=== PATIENT | male | born 1965 | race Caucasian/White ===

== ENCOUNTER 2024-01-02 14:28 | Day surgery (SDC) | payer OTHER, SELFPAY ==
[2024-01-02] VITALS (11 sets, daily range): BP systolic 121–161; BP diastolic 65–138; BMI 31.9
[2024-01-02 10:52] LABS: Urine Albumin Negative (Neg - Trace); Urine Bilirubin Negative (Negative); Urine Character Clear (Clear); Urine Color Yellow; Urine Glucose Negative (Negative); Urine Ketone Negative (Negative); Urine Leukocyte Negative (Negative); Urine Nitrite Negative (Negative); Urine Occult Blood Negative (Negative); Urine Specific Gravity 1.015 (<1.030); Urine Urobilinogen Negative (Neg - 1+)
[2024-01-02 11:01] LABS: % Basophils 0.6 % (0-2); % Eosinophils 0.8 % (0-6); % Immature Granulocytes 0.2 % (0-0.5); % Lymphocytes 17.7 % (20.5-51.1); % Monocytes 8.7 % (1.7-9.3); ALT (SGPT) 38 U/L (0-50); AST (SGOT) 28 U/L (17-59); Absolute Basophils 0.1 10^3/uL (0-0.2); Absolute Eosinophils 0.1 10^3/uL (0-0.7); Absolute Lymphocytes 1.5 10^3/uL (1.2-3.4); Absolute Monocytes 0.7 10^3/uL (0.1-0.6); Absolute Neutrophils 6.1 10^3/uL (1.4-6.5); Albumin 4.6 g/dl (3.5-5.0); Alkaline Phosphatase 96 U/L (38-126); Blood Urea Nitrogen 12 mg/dl (9-20); Calcium 9.5 mg/dl (8.4-10.2); Carbon Dioxide 27 mmol/L (22-30); Chloride 100 mmol/L (98-107); Estimated Creatinine Clearance 94 ml/min; Glucose 106 mg/dl (70-99); Hemoglobin 13.5 g/dL (13.0-18.0); Mean Corp Hgb Conc. 33.8 g/dL (33.0-37.0); Mean Platelet Volume 10.5 fL (7.4-10.4); Nucleated Red Blood Cells % 0 % (-); Platelet Count 197 10^3/uL (130-400); Potassium 4.1 mmol/L (3.5-5.1); Red Blood Cell Count 4.35 10^6/uL (4.70-6.10); Red Cell Dist. Width 12.4 % (11.5-14.5); Sodium 139 mmol/L (135-145); Total Bilirubin 2.3 mg/dl (0.2-1.3); Total Protein 7.2 g/dl (6.3-8.2); White Blood Cell Count 8.5 10^3/uL (4.8-10.8); eGFR > 60.00
--- NOTE | 2024-01-02 12:02 | ED.GENMED ---
History of Present Illness
General
Chief Complaint: Abdominal Symptoms
Time Seen by Provider: 01/02/24 09:56
History of Present Illness
History of Present Illness:
58-year-old male with history of hypertension presents to the emergency department for evaluation of lower abdominal pain. Reports that over the weekend he has had difficulty urinating that has become increasingly worse. He is planned to see
urology in 2 weeks. Feels as though he cannot empty his bladder fully and reports right lower quadrant pain associated with this. Was referred to the emergency department by his primary care physician. Denies any fevers or chills
Review of Systems
Review of Systems
Allergies reviewed?: Yes
All Other Systems: ROS reviewed and negative except as documented in HPI and ROS
Phy Exam
Physical Exam
Physical Exam:
GEN: Well appearing, NAD, WDWN
HEENT: Oral mucosa moist, no scleral icterus
Cardiac: Regular rate
Lung: No respiratory distress, no tachypnea
Abdomen: Soft, focal tenderness to the suprapubic and right lower quadrant, no peritoneal signs or rebound
MSK: No gross deformity or injuries
Skin: Good color, no pallor or jaundice, no rashes
Neuro: AO x3, moves all extremities freely
Psych: Calm, cooperative
Course
Orders/Labs/Results
Orders:
Orders
01/02/24
Electrocardiogram (*1) Stat
Reason for Study: Chest Pain
Comment: DONE
01/02/24 10:06
Bladder Scan- Treatment ONCE
01/02/24 10:36
Complete Blood Count/With Diff Urgent
Comprehensive Metabolic Panel Urgent
Urinalysis Reflex To Culture Urgent
Date Specimen was Collected: 01/02/24
Time Specimen was Collected: 10:34
01/02/24 11:37
CT Abd/Pel (IV only)-DH only Urgent
Comment:
Reason For Exam: RLQ pain
01/02/24 11:54
Ketorolac [Toradol] 15 mg IV NOW STA
01/02/24 13:26
Piperacillin/Tazo 3.375 Gram [Zosyn] 3.375 gram in 50 ml IV NOW
01/02/24 13:53
Dexamethasone Sod Phosphate [Decadron] 20 mg .ROUTE .STK-MED ONE
Fentanyl Citrate/Pf [Sublimaze] 100 mcg .ROUTE .STK-MED ONE
Lidocaine HCl/Pf [Xylocaine-Mpf 1% Vial] 50 mg .ROUTE .STK-MED ONE
Midazolam HCl [Versed] 2 mg .ROUTE .STK-MED ONE
Ondansetron Injectable [Zofran] 4 mg .ROUTE .STK-MED ONE
Propofol [Diprivan] 20 ml .ROUTE .STK-MED
Rocuronium [place] [Rocuronium] 50 mg .ROUTE .STK-MED ONE
01/02/24 13:54
Bupivacaine 0.25%Pf/Epinephrin [Sensorcaine-Epi 0.25%-0.0005] 30 ml .ROUTE .STK-MED ONE
Abnormal Lab Results
01/02/24
10:36
RBC 4.35 L 10^6/uL
(4.70-6.10)
MPV 10.5 H fL
(7.4-10.4)
Absolute Monos (auto) 0.7 H 10^3/uL
(0.1-0.6)
Lymphocytes % 17.7 L %
(20.5-51.1)
Glucose 106 H mg/dl
(70-99)
Total Bilirubin 2.3 H mg/dl
(0.2-1.3)
01/02/24 10:36
01/02/24 10:36
Vital Signs
Initial and Last Documented VS:
Initial Vital Signs
Temp Pulse Resp BP Pulse Ox
97.9 F 80 18 159/138 96
01/02/24 09:35 01/02/24 09:35 01/02/24 09:35 01/02/24 09:35 01/02/24 09:35
Last Documented Vital Signs
Temp Pulse Resp BP Pulse Ox
97.9 F 75 18 161/75 98
01/02/24 09:35 01/02/24 13:49 01/02/24 13:49 01/02/24 13:49 01/02/24 13:49
MDM/Problems Addressed
MDM/Problems Addressed:
Initially patient was evaluated for urinary retention however prevoid bladder scan with only 200 mL, subsequently able to urinate at least half of that volume. Urinalysis was clean, thus workup was transitioned to acute abdomen with labs and
imaging, imaging revealed uncomplicated acute appendicitis. General surgery was made aware and will take the patient for operative intervention today
*Critical Care Note
Total Time (30-74mins, 75-104mins- exclusive of procedures): Not Applicable
ED Attending Note
-
Portions of this chart may have been created with voice recognition software.� Occasional wrong word or��sound alike� substitutions may have occurred due to the inherent limitations of voice recognition software.
Discharge Plan
Departure
Patient Disposition: Admit
Date of Disposition: 01/02/24
Time of Disposition: 13:28
Admit to: Med/Surg
Presentation/result/management discussed w/ accepting MD/DO: Gen Surg
Discharge Problem:
Acute appendicitis
Prescriptions:
No Action
metoprolol succinate 50 mg tablet extended release 24 hr
50 mg PO DAILY
tamsulosin 0.4 mg capsule
0.8 mg PO HS
losartan 100 mg tablet
100 mg PO DAILY
Theragen Tablet
2 tab PO DAILY
Referrals:
Andria Bartholomew DO [Family Provider] -
Interventions
Interventions:
*Risk Screen - Suicide Last Done: 01/02/24 10:52
*General Assessment Last Done: 01/02/24 10:52
*Neglect/Abuse Screening Last Done: 01/02/24 10:52
ED- Fall Risk Assessment Last Done: 01/02/24 10:52
*ED COVID-19 Vaccine History Last Done: 01/02/24 10:52
*Nursing Disposition Last Done: 01/02/24 13:54
WC-Dvfuec-Cdyljwlwpe Assessment Last Done: 01/02/24 13:49
Discharge Date and Time
Discharge Date/Time: 01/02/24 13:54
Print Language: IRISH
[2024-01-02] MEDS: TORADOL 15 MG IV (12:13)
[2024-01-02] MEDS: ZOSYN 50 IV (13:50)
--- NOTE | 2024-01-02 13:54 | HPS.HSE ---
Addendum entered and electronically signed by Yoav Bosch MD 01/02/24 14:26:
Patient seen and examined.
Patient is a 58 yo M with PMH of HTN, BPH, chronic back pain, s/p left TKR, and s/p RIH with mesh who presents with persistent RLQ abdominal pain. Mr. Ramirez states that his symptoms began approximately 2 weeks ago. Describes a mild RLQ abdominal
discomfort which ultimately resolved. Symptoms then recurred approximately 4 to 5 days ago and have been present since that time. Describes a tightness and sharp RLQ abdominal pain palpation. Presented to use the CT referred into the ED. Denies
any fevers or chills. No nausea or vomiting. Appetite has been suppressed. Denies any fluctuation in bowel habits. Colonoscopy 5 years ago reported to be normal.
Gen: NAD
Abd: soft, tender to palpation in RLQ, ND, non-peritoneal, prior incisions well healed
Labs and CT scan imaging were reviewed.
Patient is a 58 yo M p/w acute appendicitis
Natural history and pathophysiology of appendicitis was discussed. Anatomy was reviewed. CT scan imaging as relates to his appendix was reviewed. Options for management including medical management with antibiotics versus surgical management with
appendectomy were considered and discussed. The pros and cons of both approaches was discussed. Specifically, we discussed failure of medical management and future episodes of appendicitis, and surgical risks. Patient would like to proceed with
appendectomy.
Plan for laparoscopic appendectomy. The procedure itself, as well as the risks, benefits, and alternatives was discussed. Specifically, we discussed the risks of bleeding, infection, injury to surrounding structures (bowel, bladder), and staple
line leak, need for open procedure. Typical postprocedure recovery was discussed. All questions answered. Consent signed.
-- Laparoscopic appendectomy
-- NPO, IVF
-- Antibiotics: Zosyn
-- Admit postoperatively
Original Note:
Family Physician
-
Family Physician: Andria Bartholomew
Chief Complaint
-
abdominal pain
History of Present Illness
Mr Ramirez is a 58 yo male with a history of right inguinal hernia repair with mesh, htn and bph who presents through the ED with RLQ pain. He describes his pain as a focal burning sensation which waxes and wanes. He first felt the discomfort about
2 weeks ago, but it did not last very long and then returned about 4-5 days ago and has been present since that time. He notes initially the pain was more severe on Monday (12/29) and accompanied by nausea. He passed a hard stool and then diarrhea
thereafter, after which time his pain lessened but never went away. He also notes he has had a little difficulty voiding as well but denies dysuria. He denies persistent nausea or vomiting but has had a poor appetite and eaten very little since
Monday. He denies fevers or chills. Today, he presented to his PCP for evaluation and was advised to go to the ER for diagnostic work up. Pain improved s/p analgesics in ED but still quite tender on exam to the RLQ.
Medical History
Past Medical History
Past Medical History: Reports HTN and Other (BPH)
Past Surgical History: Reports Orthopedic (left TKR with revision, injections into c4-6 by pain management) and Other (Right inguinal hernia repair with mesh (?robotic))
Social History
Tobacco: Non-smoker
Alcohol: Occasional
Personal:
Living: With Family
Family History
Family History: Not pertinent
Allergies / Home Medications
Allergies reflects when Allergies were last updated in [employer].
Home Medications with original date entered in [facility]
Allergy/Medication List:
Patient Allergies
Allergy/AdvReac Type Severity Reaction Status Date / Time
No Known Allergies Allergy Unverified 01/02/24 09:41
�Medication �Instructions �Recorded �Confirmed �Type
losartan 100 mg tablet 100 mg PO DAILY 01/02/24 01/02/24 History
metoprolol succinate 50 mg 50 mg PO DAILY 01/02/24 01/02/24 History
tablet,extended release 24 hr
tamsulosin 0.4 mg capsule 0.8 mg PO HS 01/02/24 01/02/24 History
therapeutic multivitamin 2 tab PO DAILY 01/02/24 01/02/24 History
Review of Systems
-
History Source: Patient
A 12 point ROS was completed and negative except as noted: Yes
Physical Exam
Vital Signs
Vital Signs
Temp Pulse Resp BP Pulse Ox
97.9 F 75 18 161/75 98
01/02/24 09:35 01/02/24 13:49 01/02/24 13:49 01/02/24 13:49 01/02/24 13:49
Physical Exam
General: Well Nourished and No Apparent Distress
HEENT: NormoCephalic and Moist mucous membranes
Respiratory: Non Labored Respirations
GI: Soft, Non Distended and Tender (RLQ with involuntary guarding)
Skin: Warm and Dry
Neuro: Awake, Alert and AO x 3
Psych: Calm
Laboratory Results
-
01/02/24 10:36
01/02/24 10:36
Laboratory Results
Total Bilirubin 2.3 mg/dl (0.2-1.3) H 01/02/24 10:36
AST 28 U/L (17-59) 01/02/24 10:36
ALT 38 U/L (0-50) 01/02/24 10:36
Alkaline Phosphatase 96 U/L (38-126) 01/02/24 10:36
Data Reviewed
-
CT Scan: Image Personally Visualized and interpreted, Report Reviewed by me, Discussed with Physician and Discussed with Patient
Lab Data: Labs Reviewed by me, Discussed with Physician and Discussed with Patient
Old Records: Reviewed
Impression/Plan
-
IMPRESSION:
58 yo male with h/o right inguinal hernia repair, htn, bph who presents with RLQ for the past 4-5 days accompanied by poor appetite with nausea at onset of symptoms. He is afebrile with hypertension noted. No leukocytosis. CT and exam consistent
with acute appendicitis.
PLAN:
Zosyn given in the ED
NPO since 5pm last night
Plan OR today for laparoscopic appendectomy
Analgesics/antiemetics
SCDs
--- NOTE | 2024-01-02 14:20 | W.SUR.PREOP ---
Pre-Operative Surgical Note
-
I have examined this patient prior to the performance of the scheduled procedure.
The patient's condition is unchanged from the time of the current History and
Physical and the patient is able to undergo the scheduled procedure.
--- NOTE | 2024-01-02 15:18 | W.IMMPOSTOP ---
Addendum entered and electronically signed by Yoav Bosch MD 01/02/24 16:39:
[facility]#[id number]
Original Note:
Surgical Immed Post Op Note
-
Primary Surgeon: Hiro
Assisting Surgeon: None
Pre-op Diagnosis: Acute appendicitis
Post-op Diagnosis: Acute appendicis
Procedure Performed: Laparoscopic appendectomy
Anesthesia Type: General
Specimen / Cultures:
1. Appendix
Estimated Blood Loss: 7 cc
Complications: None
Operative Findings:
1. Acutely inflamed, dilated appendix, no purulent or feculent contamination
2. Mesentery taken with Vorehanat, base with borden load stapler
Plan:
-- Routine post-op care
-- No need for abx on DC
--- NOTE | 2024-01-02 16:47 | PTCARENOTE ---
Patient admitted from [facility] post laparoscopic appendectomy.The patient is alert and oriented.He reports no pain.Vital signs are stable.All 4 lap sites are clean and dry without any drainage.The patient is in his bed with the call loera in reach.He is
hungry and anxious to order some dinner.
[2024-01-02] MEDS: NSS 1000 IV (17:07)
== END 2024-01-02 19:37 | disposition home or self-care (01) ==
LOC: PACU 14:28
PROVIDERS: Physician Assistant; ATTENDING PHYSICIAN Surgery; EMERGENCY PHYSICIAN Student in an Organized Health Care Education/Training Program; FAMILY PHYSICIAN Family Medicine
PROC: 0DTJ4ZZ Resection of Appendix, Percutaneous Endoscopic Approach (ICD-10-PCS; 2024-01-02)
DX: K35.80 Unspecified acute appendicitis (principal); E66.9 Obesity, unspecified; Z68.31 Body mass index [BMI] 31.0-31.9, adult; I10 Essential (primary) hypertension
CPT/HCPCS: 44970; 88304; 74177; 80053; 81003; 85025; 93005; 96365; 96375; 99285; C1776; Q9967

== ENCOUNTER 2025-01-04 07:03 | Emergency (ER) | payer OTHER, SELFPAY ==
[2025-01-04 07:09] VITALS: BP 137/88
[2025-01-04 07:31] VITALS: BMI 31.3
--- NOTE | 2025-01-04 07:39 | ED.GENMED ---
History of Present Illness
General
Chief Complaint: Musculo-Skeletal Complaint
Source: patient
Time Seen by Provider: 01/04/25 07:37
Nursing documentation reviewed up to this point in time: agreed with
History of Present Illness
History of Present Illness:
Note:
CHIEF COMPLAINT(S)
Pain in left hip, left shoulder, and lower back.
HISTORY OF PRESENT ILLNESS
The patient is a 59-year-old male who presents with worsening pain in the left hip, left shoulder, and lower back following an incident where he fell. He described the pain as feeling like 'somethings coming apart,' and mentioned that it gets worse
with walking, to the point of barely being able to walk. He experienced the fall recently before the current visit. The patient also reported receiving an injection at the C6-C7 region on the left side on the , prior to the fall. He has been
managing the pain with Percocet, which was initially prescribed for a previous neck and arm injury. He takes it occasionally, mostly during the weekends when the pain is exacerbated by work activities. He mentioned taking Percocet once a day when
needed.
MEDICATIONS
- Percocet (as needed for pain, primarily on weekends).
- Blood pressure medication (Tamsulosin noted for prostate issues).
PHYSICAL EXAM
General: Alert, no acute distress.
Skin: Warm, dry.
Head: Normocephalic, atraumatic.
Neck: Supple, trachea midline.
Eye, Ears, Nose, Mouth, and Throat: Oral mucosa moist.
Cardiovascular: Normal peripheral perfusion, No edema.
Respiratory: Respirations are non-labored.
Gastrointestinal: Abdomen nondistended.
Back: Normal range of motion, Normal alignment.
Musculoskeletal: Normal ROM, normal strength. left shoulder tender to palpation, full ROM
Neurological: Alert and oriented to person, place, time, and situation, No focal neurological deficit observed.
Psychiatric: Cooperative, appropriate mood & affect.
PLAN
Order X-rays to assess potential dislocation or fractures in the left hip, shoulder, and lower back. The patient will also be evaluated to ensure there is no significant structural damage causing his symptoms.
DIFFERENTIAL DIAGNOSIS
The Differential Diagnosis includes, in no particular order and is not limited to:
- Hip fracture
- Shoulder dislocation
- Lumbar strain
- Sacroiliac joint dysfunction
- Trochanteric bursitis
- Gluteal tendinopathy
- Rotator cuff injury
- Degenerative joint disease
- Neural compression
- Pelvic fracture
Note:
CARE-UPDATE
01/04/25 - 10:40
The patient is stable for discharge and will follow up with orthopedics. Imaging of the left shoulder and hip shows chronic changes without acute findings or significant arthritis. Lumbar x-rays indicate arthritis with no acute fracture noted.
Discharge instructions include precautionary measures.
Disposition:
SUMMARY OF ENCOUNTER
The patient, a 59-year-old male, presented to the emergency department with worsening pain in the left hip, left shoulder, and lower back following a recent fall. An evaluation was conducted to assess potential dislocation or fractures. Percocet was
being used for pain management, particularly during weekends when work activities exacerbated the pain. Imaging of the left shoulder and hip revealed chronic changes without significant arthritis or acute findings, and lumbar x-rays indicated the
presence of arthritis but showed no acute fractures. The patient was neurologically and vascularly intact.
DISPOSITION
Discharge
ASSESSMENT
Hip strain, lumbar strain, left shoulder strain due to a fall, without fractures. The patient is stable for discharge.
PLAN
Discharge home with instructions to follow up with orthopedics and precautions to prevent further injury.
INDEPENDENT REVIEW OF LABS AND INTERPRETATION OF TESTS
- My independent interpretation of the x-rays indicates chronic changes in the left shoulder and hip without acute findings or significant arthritis, and arthritis in the lumbar region without acute fractures.
FOLLOW-UP INSTRUCTIONS
The patient is advised to follow up with orthopedics and return for further evaluation if symptoms persist or worsen.
MEDICATION RECONCILIATION
Tamsulosin for prostate issues, Percocet (acetaminophen/oxycodone) for pain management as needed, particularly on weekends when pain is exacerbated by work activities.
MEDICAL DECISION MAKING
- Number and Complexity of Problems Addressed: Chronic conditions affecting care: Pain in left hip, left shoulder, and lower back following a fall. Differential diagnosis included hip fracture, shoulder dislocation, lumbar strain, among others
listed in the differential diagnosis.
- Data:
Category 1: Imaging reviewed showing no acute fractures but chronic changes in the shoulder and hip; lumbar x-rays showing arthritis.
- Risk: Prescription drug management was considered, and medication for pain is already in use by the patient. Consideration of Admission/Observation: A decision was made to discharge with close follow up as the patients work-up was reassuring,
showing no acute life-threatening processes, and the patient was agreeable with discharge and deemed reliable for follow-up.
DIAGNOSIS
- Hip strain (ICD-10: S79.112A)
- Lumbar strain (ICD-10: S39.012A)
- Left shoulder strain (ICD-10: S43.412A)
Phy Exam
Physical Exam
Physical Exam:
.
Course
Orders/Labs/Results
Orders:
Orders
01/04/25 08:08
CR Shoulder - Left Min 2 View* Urgent
Comment:
Reason For Exam: fall onto left shoulder 11 days ago
Hip, Left 2-3 Views [CR Hip - LT w/wo Pel 2-3 Vw*] Urgent
Comment:
Reason For Exam: fall onto left hip 11 days ago
Include a pelvis x-ray?: Yes
Lumbar Spine Complete, 4 View [CR Lumbar Spine Comp Min 4 Vw*] Urgent
Comment:
Reason For Exam: fall onto left side 11 days ago low back pain
Vital Signs
Initial and Last Documented VS:
Initial Vital Signs
Temp Pulse Resp BP Pulse Ox
97.6 F 92 16 137/88 97
01/04/25 07:09 01/04/25 07:09 01/04/25 07:09 01/04/25 07:09 01/04/25 07:09
Last Documented Vital Signs
Temp Pulse Resp BP Pulse Ox
97.6 F 89 18 132/77 100
01/04/25 07:09 01/04/25 11:06 01/04/25 11:06 01/04/25 11:06 01/04/25 11:06
*Pulse Oximetry
SaO2: 97
Oxygen Mode of Delivery: Room air
Patient hypoxic: no
*Critical Care Note
Total Time (30-74mins, 75-104mins- exclusive of procedures): 32 (Critical care statement: A total of 32 minutes of critical care time was provided for this patient. This includes management of unstable vital signs, evaluation of the patient at
bedside, reviewing the patient's pertinent medical records, discussion with consultants, review of old EKGs and review of)
ED Attending Note
-
Portions of this chart may have been created with voice recognition software.� Occasional wrong word or��sound alike� substitutions may have occurred due to the inherent limitations of voice recognition software.
Discharge Plan
Departure
Patient Disposition: Home (Routine Discharge)
Date of Disposition: 01/04/25
Time of Disposition: 10:52
Patient with high blood pressure during this ER visit?: Yes
Condition: Good
Discharge Problem:
Fall, Strain of left hip, Lumbar strain, Left shoulder strain
Instructions: Muscle Strain (DC), Muscle and Bone Pain (DC), BLOOD PRESSURE
Prescriptions:
No Action
metoprolol succinate 50 mg tablet extended release 24 hr
50 mg PO DAILY
tamsulosin 0.4 mg capsule
0.8 mg PO HS
losartan 100 mg tablet
100 mg PO DAILY
therapeutic multivitamin Tablet
2 tab PO DAILY
acetaminophen 325 mg tablet
650 mg PO Q4HPRN PRN (Reason: mild pain) Qty: 1 0RF
ibuprofen 200 mg tablet
400 - 600 mg PO Q6HPRN PRN (Reason: moderate pain) Qty: 1 0RF
oxycodone 5 mg tablet
5 mg PO Q4HPRN PRN (Reason: breakthrough/severe pain) Qty: 10 0RF
Referrals:
Sami Huizar DO [Non-Admitting Privileges, Orthopedics] - Call in 1-3 days for appt
Andria Bartholomew DO [Family Provider, Family Practice]
Adolfo Avalos MD [Active, Orthopedics] - Call in 1-3 days for appt
Interventions
Interventions:
*Risk Screen - Suicide Last Done: 01/04/25 07:09
*General Assessment Last Done: 01/04/25 07:09
*Neglect/Abuse Screening Last Done: 01/04/25 07:09
*ED- Fall Risk Assessment Last Done: 01/04/25 07:31
*ED COVID-19 Vaccine History Last Done: 01/04/25 07:09
*Nursing Disposition Last Done: 01/04/25 11:07
ED-Musculoskeletal Assessment Last Done: 01/04/25 07:31
Discharge Date and Time
Discharge Date/Time: 01/04/25 11:08
Print Language: NIGERIEN
[2025-01-04 11:06] VITALS: BP 132/77
== END 2025-01-04 11:08 | disposition home or self-care (01) ==
LOC: EMR 07:03
PROVIDERS: EMERGENCY PHYSICIAN Emergency Medicine; FAMILY PHYSICIAN Family Medicine
DX: S46.912A Strain of unspecified muscle, fascia and tendon at shoulder and upper arm level, left arm, initial encounter (principal); S39.012A Strain of muscle, fascia and tendon of lower back, initial encounter; S76.012A Strain of muscle, fascia and tendon of left hip, initial encounter; W19.XXXA Unspecified fall, initial encounter
CPT/HCPCS: 99291; 72110; 73030; 73502